=== PATIENT | female | born 1955 | race Caucasian/White ===

== ENCOUNTER 2021-07-02 08:01 | Outpatient (CLI) | payer OTHER | END 2021-07-02 13:24 | disposition home or self-care (01) | LOC: LAB 08:01 | PROVIDERS: ATTEND Internal Medicine | DX: R74.01 Elevation of levels of liver transaminase levels (principal); E03.8 Other specified hypothyroidism; D89.89 Other specified disorders involving the immune mechanism, not elsewhere classified; Z13.1 Encounter for screening for diabetes mellitus; E78.00 Pure hypercholesterolemia, unspecified ==

== ENCOUNTER 2021-07-02 09:08 | Outpatient (CLI) | payer OTHER | END 2021-07-02 09:09 | disposition home or self-care (01) | LOC: SONOGRAMA 09:08 | PROVIDERS: ATTEND Internal Medicine | DX: R74.01 Elevation of levels of liver transaminase levels (principal); E03.8 Other specified hypothyroidism; D89.89 Other specified disorders involving the immune mechanism, not elsewhere classified; Z13.1 Encounter for screening for diabetes mellitus; E78.00 Pure hypercholesterolemia, unspecified ==

== ENCOUNTER 2021-07-07 07:15 | Outpatient (CLI) | payer OTHER | END 2021-07-07 07:30 | disposition home or self-care (01) | LOC: LAB 07:15 | PROVIDERS: ATTEND Internal Medicine | DX: R74.01 Elevation of levels of liver transaminase levels (principal); E03.8 Other specified hypothyroidism; D89.89 Other specified disorders involving the immune mechanism, not elsewhere classified; Z13.1 Encounter for screening for diabetes mellitus; E78.00 Pure hypercholesterolemia, unspecified ==

== ENCOUNTER 2021-10-28 14:59 | Outpatient (CLI) | payer OTHER | END 2021-10-28 15:05 | disposition home or self-care (01) | LOC: MAMO-SONO 14:59 | PROVIDERS: ATTEND Internal Medicine | DX: Z12.31 Encounter for screening mammogram for malignant neoplasm of breast (principal) ==

== ENCOUNTER → 2021-10-28 | Outpatient (CLI) | payer OTHER | END | disposition home or self-care (01) | LOC: NUCLEAR 12:25 | PROVIDERS: ATTEND Internal Medicine | DX: M81.0 Age-related osteoporosis without current pathological fracture (principal) ==

== ENCOUNTER 2022-11-19 07:42 | Outpatient (CLI) | payer OTHER | END 2022-11-19 07:49 | disposition home or self-care (01) | LOC: SONOGRAMA 07:42 | PROVIDERS: ATTEND Internal Medicine Gastroenterology | DX: R16.2 Hepatomegaly with splenomegaly, not elsewhere classified (principal) ==

== ENCOUNTER 2023-11-01 12:37 | Outpatient (CLI) | payer OTHER | END 2023-11-01 12:38 | disposition home or self-care (01) | LOC: NUCLEAR 12:37 | PROVIDERS: ATTEND Internal Medicine | DX: M81.0 Age-related osteoporosis without current pathological fracture (principal) ==

== ENCOUNTER 2023-11-23 11:01 | Outpatient (CLI) | payer OTHER | END 2023-11-23 11:14 | disposition home or self-care (01) | LOC: RAD 11:01 | PROVIDERS: ATTEND Internal Medicine | DX: R05.9 Cough, unspecified (principal) ==